=== PATIENT | male | born 1970 | race Hispanic/Latino ===

== ENCOUNTER 2022-07-18 10:22 | Emergency (ER) | payer OTHER ==
[~2022-07-18] VITALS: Ht 175.3 cm; Wt 63.5 kg
[2022-07-18] MEDS ORDERED: OSELTAMIVIR PHOSPHATE 75 MG CAP PO ONE (16:00)
[2022-07-18] MEDS ORDERED: ACETAMINOPHEN 500 MG TABLET PO ONE (16:00)
[2022-07-18] MEDS ORDERED: ACETAMINOPHEN 500 MG TABLET ONE (16:50)
[2022-07-18] MEDS ORDERED: OSELTAMIVIR PHOSPHATE 75 MG CAP ONE (16:51)
[2022-07-18] MEDS ORDERED: GUAI120015 PO (17:22)
[2022-07-18] MEDS ORDERED: OSEL75 PO (17:22)
[2022-07-18] MEDS ORDERED: D-ME118S47 PO (17:22)
[2022-07-18 17:36] VITALS: BP 140/82
== END 2022-07-18 17:42 | disposition home or self-care (01) ==
LOC: EDH 10:22
DX: B34.9 Viral infection, unspecified (principal); J11.1 Influenza due to unidentified influenza virus with other respiratory manifestations; Z20.822 Contact with and (suspected) exposure to COVID-19
CPT/HCPCS: 99283; 87635; 87804 ×2; C9803